=== PATIENT | female | born 2000 | race Caucasian/White ===

== ENCOUNTER 2023-02-09 15:40 | Emergency (ER) | payer OTHER, MEDICAID ==
[2023-02-09 16:07] LABS: HCG UR QUAL NEGATIVE
[2023-02-09 16:08] LABS: BILIRUBIN,URINE NEGATIVE (NEGATIVE); GLUCOSE, URINE (UA) NEGATIVE (NEGATIVE); KETONES,URINE (UA) NEGATIVE (NEGATIVE); LEUKOCYTE ESTERASE, URINE NEGATIVE (NEGATIVE); NITRITE,URINE NEGATIVE (NEGATIVE); OCCULT BLOOD,URINE NEGATIVE (NEGATIVE); PROTEIN,URINE NEGATIVE (NEGATIVE); UROBILINOGEN,URINE 0.2 (NORMAL) E.U./dL (NORMAL)
[2023-02-09 16:09] LABS: CLARITY,URINE CLEAR (CLEAR)
--- NOTE | 2023-02-09 16:24 | ED Physician Documentation ---
History of Present Illness - Stated complaint Stated Complaint: BACK PX - Chief complaint Chief Complaint: Back Pain - Additonal information Additional information: 22-year-old transgender male presents to the emergency department for evaluation of 3 months of left-sided low back pain and now new urge incontinence. Reported back pain start about 3 months ago and was positional especially with moving or walking. He took some ibuprofen and over time the back pain is improved. However he had been told by walk-in clinic providers that if he ever had incontinence he should return to an emergency department. Over the last several days the patient has had urge incontinence but no lack of sensation to urinate or saddle anesthesia. No fevers. Currently on testosterone since March 2022. Denies fevers, flank pain abdominal pain or vomiting. 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 : None HEENT: None Psych: Depression, Anxiety, ADD/ADHD, Post traumatic stress disorder, Other Musculoskeletal: Chronic back pain Derm: None Other Past Medical History: autism - Past Surgical History Past Surgical History: No - Present Medications Home Medications: Ambulatory Orders Medication Instructions Recorded Confirmed ARIPiprazole [Abilify] 15 mg PO DAILY 02/09/23 02/09/23 Escitalopram Oxalate [Lexapro] 20 mg PO DAILY 02/09/23 02/09/23 Testosterone Cypionate 0.3 ml IM Q7D 02/09/23 02/09/23 [Depo-Testosterone] - Allergies Allergies/Adverse Reactions: Allergies Allergy/AdvReac Type Severity Reaction Status Date / Time No Known Drug Allergies Allergy Verified 02/09/23 15:46 - Social History Does the pt smoke?: No Smoking Status: Never smoker Does the pt drink ETOH?: No Does the pt have substance abuse?: Yes Substance Use and Type: Marijuana - Immunizations Immunizations are current?: Yes PD ED PE NORMAL - General General: Alert and oriented X 3, No acute distress, Well developed/nourished - HEENT HEENT: Atraumatic, Moist mucous membranes - Neck Neck: Supple, no meningeal sign, No adenopathy - Cardiac Cardiac: RRR, No murmur - Respiratory Respiratory: Clear bilaterally - Abdomen Abdomen: Normal bowel sounds, Soft, Non tender (No flank pain, CVA tenderness or lower abdominal tenderness elicited) - Back Back: No CVA TTP, No spinal TTP (No tenderness elicited with palpation of the midline thoracic or lumbar lower lumbar spinous processes. No crepitus, step- off or deformity.) - Derm Derm: Normal color, Warm and dry, No rash - Extremities Extremities: No deformity - Neuro Neuro: Alert and oriented X 3 Eye Opening: Spontaneous Motor: Obeys Commands Verbal: Oriented GCS Score: 15 Results - Vitals Vitals: Vital Signs - 24 hr 02/09/23 15:47 Temperature 36.7 C Heart Rate 78 Respiratory 16 Rate Blood Pressure 125/82 H O2 Saturation 100 Oxygen O2 Source Room air - Labs Labs: Laboratory Tests 02/09/23 15:55 Urine Color YELLOW Urine Clarity CLEAR Urine pH 5.0 Ur Specific [place] >=1.030 H Urine Protein NEGATIVE Urine Glucose (UA) NEGATIVE Urine Ketones NEGATIVE Urine Occult Blood NEGATIVE Urine Nitrite NEGATIVE Urine Bilirubin NEGATIVE Urine Urobilinogen 0.2 (NORMAL) Ur Leukocyte Esterase NEGATIVE Ur Microscopic Review NOT INDICATED Urine Culture Comments NOT INDICATED Urine HCG, Qual NEGATIVE PD Medical Decision Making - ED course Complexity details: reviewed results, d/w patient ED course: Well-appearing 20-year-old Transgender male presents emergency department for evaluation of several days urge incontinence. States that when he begins to feel the need to urge to urinate he does not go to the bathroom immediately she will become incontinent. She has no dysuria, frequency flank pain or vomiting. Is currently on testosterone and has been for nearly a year. Urinalysis today is not consistent with infection. I suspect I suspect some of the changes may be associated with transitioning and loss of estrogen. We will defer antibiotics unless the culture is positive. Advised to follow closely with PCP. Usual emergent return precautions for worsening symptoms was d iscussed. Departure - Departure Disposition: 01 Home, Self Care Clinical Impression: Urge incontinence of urine Condition: Stable Record reviewed to determine appropriate education?: Yes Comments: You are seen today because for the last several days you have had urge incontinence where you feel the need to urinate and are not able to make it to the bathroom in enough time. Your urine today does not show any signs of infection. As discussed at the bedside I suspect some of this may have to do with the changing hormones, loss of natural estrogen while you start the testosterone. Please follow closely with your primary care doctor. If you develop fevers, have flank pain, vomiting any concerns of infection or worsening symptoms and please return immediately to the ER for repeat evaluation.
[2023-02-09 17:06] VITALS: BP 133/69; O2SAT 97
== END 2023-02-09 17:00 | disposition home or self-care (01) ==
LOC: ED 15:40
DX: N39.41 Urge incontinence (principal)
CPT/HCPCS: 81001; 81003; 81025; 87086; 99283

== ENCOUNTER 2023-03-12 09:22 | Outpatient (CLI) | payer OTHER, MEDICAID ==
[2023-03-12 11:57] LABS: BASOPHILS % (AUTO) 0.5 %; EOSINOPHILS # (AUTO) 0.1 10^3/uL (0.0-0.7); EOSINOPHILS % (AUTO) 1.5 %; HCT - HEMATOCRIT 47.5 % (37.0-47.0); HGB - HEMOGLOBIN 14.3 g/dL (12.0-16.0); LYMPHOCYTES # (AUTO) 1.7 10^3/uL (1.5-3.5); LYMPHOCYTES % (AUTO) 26.9 %; MEAN CORPUSCULAR HEMOGLOBIN 22.2 pg (27.0-31.0); MEAN CORPUSCULAR HGB CONC 30.1 g/dL (32.0-36.0); MEAN CORPUSCULAR VOLUME 73.6 fL (81.0-99.0); MEAN PLATELET VOLUME 12.4 fL (7.9-10.8); MONOCYTES # (AUTO) 0.4 10^3/uL (0.0-1.0); MONOCYTES % (AUTO) 6.7 %; NEUTROPHILS # (AUTO) 3.9 10^3/uL (1.5-6.6); NEUTROPHILS % (AUTO) 63.7 %; PLT - PLATELET COUNT 216 10^3/uL (130-450); RED BLOOD COUNT 6.45 10^6/uL (4.20-5.40); RED CELL DISTRIBUTION WIDTH 14.1 % (12.0-15.0); WHITE BLOOD COUNT 6.1 x10^3/uL (4.8-10.8)
[2023-03-12 12:46] LABS: ALBUMIN 4.4 g/dL (3.2-5.5); ALBUMIN/GLOBULIN RATIO 1.6 (1.0-2.2); ALKALINE PHOSPHATASE 67 IU/L (42-121); ALT ALANINE AMINOTRANSFERASE 16 IU/L (10-60); AST ASPARTATE AMINOTRANSFERASE 18 IU/L (10-42); BILIRUBIN,TOTAL 0.5 mg/dL (0.2-1.0); BUN - BLOOD UREA NITROGEN 9 mg/dL (6-20); CALCIUM 9.6 mg/dL (8.5-10.3); CARBON DIOXIDE - CO2 28 mmol/L (21-32); CHLORIDE 105 mmol/L (101-111); CHOL/HDL RATIO 3.8 (<4.4); CHOLESTEROL 153 mg/dL; CREATININE 0.8 mg/dL (0.6-1.3); GFR - MDRD 90 (>89); GLUCOSE 88 mg/dL (74-104); HDL CHOLESTEROL 40 mg/dL; LDL CHOLESTEROL,CALCULATED 95 mg/dL; LDL/HDL RATIO 2.4 (<4.4); POTASSIUM 4.3 mmol/L (3.5-4.5); SODIUM 139 mmol/L (135-145); TOTAL PROTEIN 7.1 g/dL (6.4-8.9); TRIGLYCERIDES 91 mg/dL (48-352); VLDL CHOLESTEROL 18 mg/dL
[2023-03-12 12:56] LABS: THYROID STIMULATING HORMONE 0.79 uIU/mL (0.34-5.60)
[2023-03-12 14:11] LABS: ESTIMATED AVERAGE GLUCOSE 108 mg/dL (70-100); HEMOGLOBIN A1c% 5.4 % (4.27-6.07)
== END 2023-03-12 09:23 | disposition home or self-care (01) ==
LOC: LAB.N 09:22
PROVIDERS: ATTEND Physician Assistant
DX: Z79.890 Hormone replacement therapy (principal); Z79.899 Other long term (current) drug therapy
CPT/HCPCS: 36415; 80053; 80061; 83036; 83721; 84403; 84443; 85025